=== PATIENT | male | born 1995 | race African-American/Black ===

== ENCOUNTER 2019-08-15 09:02 | Emergency (ER) | payer OTHER ==
[2019-08-15 09:19] VITALS: BP 145/74
--- NOTE | 2019-08-15 09:23 | ED Physician Documentation ---
History of Present Illness - Stated complaint Stated Complaint: ARM PX - Chief complaint Chief Complaint: Ext Problem - Additonal information Additional information: This is a 24-year-old male who presents with left forearm pain. He was playing [employer] yesterday and another player impacted his left mid ulna. He had pain in the arm, and this morning when he woke up he had persistent pain so he comes here for evaluation. He denies any weakness, numbness, or tingling. He states he is unable to do a push-up on the arm, and pronation and supination cause him some discomfort. No hand, wrist, or upper arm pain. Review of Systems Skin: denies: Laceration (s) Musculoskeletal: reports: Extremity pain PD PAST MEDICAL HISTORY - Past Medical History Past Medical History: No - Past Surgical History Past Surgical History: No - Present Medications Home Medications: Ambulatory Orders Medication Instructions Recorded Confirmed Cyclobenzaprine [Flexeril] 10 mg 08/15/19 Meloxicam 0 mg 08/15/19 - Allergies Allergies/Adverse Reactions: Allergies Allergy/AdvReac Type Severity Reaction Status Date / Time No Known Drug Allergies Allergy Verified 08/15/19 09:20 - Living Situation Living Arrangement: reports: At home - Social History Does the pt smoke?: No - Family History Family history: reports: Non contributory PD ED PE NORMAL - Vitals Vital signs reviewed: Yes - General General: Alert and oriented X 3, No acute distress - HEENT HEENT: Atraumatic - Cardiac Cardiac: RRR - Respiratory Respiratory: No respiratory distress - Abdomen Abdomen: Non distended - Derm Derm: Warm and dry - Extremities Extremities: Other (No gross deformity of the left arm. There is no tenderness in the hand or wrist. Patient has some tenderness on the ulnar aspect of the forearm in the mid to proximal forearm. There is slight edema in this region. Patient has full active range of motion of his elbow, there is no tenderness of the elbow or the humerus. Sensation to light touch intact over the entire extremity. Counter Hand strength and wrist extension flexion 5 out of 5 strength.) - Neuro Neuro: Alert and oriented X 3 - Psych Psych: Normal mood, Normal affect Results - Vitals Vitals: Vital Signs - 24 hr 08/15/19 09:12 Temperature 37 C Heart Rate 88 Respiratory 16 Rate Blood Pressure 145/74 H O2 Saturation 100 Oxygen O2 Source Room air - Rads (name of study) XR forearm left Radiology: Other (No acute fracture or dislocation) PD MEDICAL DECISION MAKING - ED course Complexity details: considered differential (Contusion, sprain, strain, fracture.) ED course: Pt presents with focal left arm pain where he impacted his arm yesterday. Limb is neurovascularly ntact and ROM of his shoulder, elbow, wrist are all normal. XR is negative for fracture. I have a low suspicion for occult fracture but discussed with worsening or non-improving symptoms he will need a repeat evaluation and XR in 1 week. I discussed supportive care and return precautions and patient was discharged home. Departure - Departure Disposition: Home, Self Care Clinical Impression: Arm pain Qualifiers: Laterality: left Qualified Code(s): M79.602 - Pain in left arm Condition: Good Follow-Up: PRABHAKAR PAN MD [Primary Care Provider] - Within 1 week (If having continued or worsening arm pain) Comments: You were seen today for arm pain. I do not see signs of a fracture on your x- ray, this may be a bruise, or damage to the soft tissues of the arm. Occasionally Small fractures are not visible on x-ray soon after the injury. If you are having continued or worsening pain 1 week from now, please see your primary care provider and have repeat x-rays obtained. If you have significant worsening or any other concerning symptoms return to the emergency department. You may take Tylenol and ibuprofen for pain. Forms: Activity restrictions Discharge Date/Time: 08/15/19 10:30
--- NOTE | 2019-08-15 09:50 | XRAY Report ---
Reason: Impact to mid/proximal ulna yesterday Procedure Date: 08/15/2019 Accession Number: [id number] / [id number] Procedure: XR - Forearm LT CPT Code: FULL RESULT: EXAM: LEFT FOREARM RADIOGRAPHY EXAM DATE: 08/15/2019 09:34 AM. CLINICAL HISTORY: Impact to mid/proximal ulna yesterday. COMPARISON: None. TECHNIQUE: 2 views. FINDINGS: Bones: Normal. No fractures or bone lesions. Joints: Normal. No effusions or subluxations in the visualized wrist or elbow joints. Soft Tissues: Normal. No soft tissue swelling. IMPRESSION: Normal forearm radiography. [facility]
== END 2019-08-15 10:30 | disposition home or self-care (01) ==
LOC: ED 09:02
DX: M79.632 Pain in left forearm (principal); W20.8XXA Other cause of strike by thrown, projected or falling object, initial encounter; Y93.74 Activity, frisbee
CPT/HCPCS: 99282; 99283

== ENCOUNTER 2019-10-01 07:54 | Outpatient (CLI) | payer OTHER ==
--- NOTE | 2019-10-01 11:14 | MRI Report ---
Reason: LUMBAR RADICULOPATHY Procedure Date: 10/01/2019 Accession Number: [id number] / [id number] Procedure: MRI - Lumbar Spine W/O CPT Code: Final Report FULL RESULT: EXAM: MRI LUMBAR SPINE WITHOUT CONTRAST EXAM DATE: 10/01/2019 08:31 AM. CLINICAL HISTORY: Low back pain. Lumbar radiculopathy. COMPARISON: None. TECHNIQUE: Multiplanar, multisequence T1-weighted and fluid-sensitive sequences of the lumbar spine from T12 to S1 without contrast. Other: None. FINDINGS: Numbering assumes 5 [id number] lumbar type vertebral bodies. No abnormal signal is seen in the conus medullaris. Grade 1 retrolisthesis of L4 relative to L5 is present. Low T1-weighted signal throughout the visualized marrow might reflect predominate red marrow. T2 hypointense signal is seen in the L4-L5 disk space. L1-L4: No posterior disk protrusion. L4-L5: There is a moderate circumferential disk protrusion. The posterior component is more focal in the right paracentral region. There is mass effect on the thecal sac which is directed posteriorly into the left. Thecal sac measures 4 mm. Bilateral lateral recess stenosis is seen much greater on the right relative to the left. Disk material extends into the inferior aspect of each foramen without causing foraminal stenosis. Increased T2 signal between the spinous processes at this level is noted. A small effusion is seen in the left facet joint. L5-S1: There is a conjoined nerve root on the left. No central canal or foraminal stenosis. IMPRESSION: 1. There is a moderate disk protrusion at L4-L5 much more focal in the right paracentral region with mass effect on the thecal sac and moderate central canal stenosis. Bilateral superior lateral recess stenosis is seen much greater on the right relative to the left. 2. T2 hyperintense signal centered between the L4 and L5 spinous processes could reflect a region of bursa formation. Flexion-extension views could assess for abnormal motion at L4-L5. 3. Grade 1 retrolisthesis of L4 relative to L5 is present. Comment: The following findings are so common in adults without low back pain that while we report their presence, they must be interpreted with caution and in the context of the clinical situation. (Reference Aronk et al, Spine 2001) Prevalence of findings in patients without low back pain: Disk degeneration (any evidence): 92% Disk desiccation/T2 signal loss: 83% Disk height loss: 56% Disk bulge: 64% Disk protrusion: 32% Annular tear/high intensity zone: 38% RAD[facility]
== END 2019-10-01 07:55 | disposition home or self-care (01) ==
LOC: DI 07:54
PROVIDERS: ATTEND Registered Nurse Diabetes Educator
DX: M51.26 Other intervertebral disc displacement, lumbar region (principal); M43.16 Spondylolisthesis, lumbar region
CPT/HCPCS: 72148